=== PATIENT | male | born 1975 | race Caucasian/White ===

== ENCOUNTER 2017-08-10 12:56 | Emergency (ER) | payer BC ==
[~2017-08-10] VITALS: Ht 182.9 cm; Wt 106.6 kg
[~2017-08-10 12:56] MED LIST: Keflex500 MG PO; LISI20 PO; LORPSEER24 PO; LOSARTAN POTASS50 MG PO; OMEP20ER PO
== END 2017-08-10 14:43 | disposition home or self-care (01) ==
LOC: ER 12:56
DX: J69.0 Pneumonitis due to inhalation of food and vomit (principal); I10 Essential (primary) hypertension; K21.9 Gastro-esophageal reflux disease without esophagitis; Z88.6 Allergy status to analgesic agent; Z79.899 Other long term (current) drug therapy
CPT/HCPCS: 71046; 99283

== ENCOUNTER 2018-06-11 22:11 | Emergency (ER) | payer BC ==
[~2018-06-11] VITALS: Ht 182.9 cm; Wt 108.9 kg
== END 2018-06-11 22:55 | disposition home or self-care (01) ==
LOC: ER 22:11
DX: S51.812A Laceration without foreign body of left forearm, initial encounter (principal); Z88.6 Allergy status to analgesic agent; I10 Essential (primary) hypertension; Z79.899 Other long term (current) drug therapy; W45.8XXA Other foreign body or object entering through skin, initial encounter
CPT/HCPCS: 12001; 99282-25

== ENCOUNTER → 2021-08-12 | Outpatient (CLI) | payer BC | END | disposition home or self-care (01) | LOC: LAB SHORT 12:44 → LAB 12:44 | DX: S90.851A Superficial foreign body, right foot, initial encounter (principal) | CPT/HCPCS: 87070; 87077; 87147; 87186; 87205 ==

== ENCOUNTER 2022-05-04 12:22 | Day surgery (SDC) | payer BC ==
[~2022-05-04] VITALS: Ht 182.9 cm; Wt 111.8 kg
== END 2022-05-04 15:02 | disposition home or self-care (01) ==
LOC: ORSCSDS 12:22
PROVIDERS: Surgery
PROC: 0DB68ZX Excision of Stomach, Via Natural or Artificial Opening Endoscopic, Diagnostic (ICD-10-PCS; principal; 2022-05-04 13:45)
PROC: 0DBN8ZX Excision of Sigmoid Colon, Via Natural or Artificial Opening Endoscopic, Diagnostic (ICD-10-PCS; principal; 2022-05-04 13:45)
DX: R13.19 Other dysphagia (principal); Z12.11 Encounter for screening for malignant neoplasm of colon; D12.5 Benign neoplasm of sigmoid colon; K29.50 Unspecified chronic gastritis without bleeding; K44.9 Diaphragmatic hernia without obstruction or gangrene; K21.9 Gastro-esophageal reflux disease without esophagitis; I10 Essential (primary) hypertension; G61.0 Guillain-Barre syndrome; Z79.899 Other long term (current) drug therapy
CPT/HCPCS: 88305; 88342; J0330; J0461; J2405; J2704; J7120; Q9968